=== PATIENT | female | born 2005 | race Caucasian/White ===

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

== ENCOUNTER 2025-10-20 14:31 | Emergency (ER) | payer OTHER, BC ==
[~2025-10-20] VITALS: Ht 160 cm; Wt 56.7 kg
[2025-10-20] MEDS ORDERED: CYCLOBENZAPRINE10 MG PO (15:55)
== END 2025-10-20 16:01 | disposition home or self-care (01) ==
LOC: ED 14:31
DX: M62.838 Other muscle spasm (principal); M54.2 Cervicalgia; R51.9 Headache, unspecified; Z91.018 Allergy to other foods; V43.52XA Car driver injured in collision with other type car in traffic accident, initial encounter; Y93.I9 Activity, other involving external motion; Y92.488 Other paved roadways as the place of occurrence of the external cause; Y99.8 Other external cause status